=== PATIENT | female | born 1990 | race Caucasian/White ===

== ENCOUNTER 2017-01-14 09:39 | Outpatient (CLI) | payer MEDICAID ==
[2017-01-14 10:16] LABS: APPEARANCE,URINE SLIGHTLY-CLOUDY; BILIRUBIN,URINE NEGATIVE (NEGATIVE); GLUCOSE, URINE NEGATIVE (NEGATIVE); KETONES,URINE TRACE mg/dL (NEGATIVE); LEUKOCYTE ESTERASE,URINE NEGATIVE (NEGATIVE); NITRITE,URINE NEGATIVE (NEGATIVE); PROTEIN,URINE NEGATIVE (NEGATIVE); URINE SPECIFIC GRAVITY 1.009; UROBILINOGEN,URINE NEGATIVE mg/dL (<2.0)
[2017-01-14 10:23] LABS: AMNISURE (ROM) NEGATIVE (NEGATIVE)
[2017-01-14 10:31] LABS: URINE BARBITURATES SCREEN NEGATIVE; URINE METHADONE SCREEN NEGATIVE; URINE OPIATES LOW NEGATIVE; URINE PHENCYCLIDINE SCREEN NEGATIVE
--- NOTE | 2017-01-14 10:55 | Non Stress Test Report ---
Non Stress Test Datetime Report Generated by CPN: 01/14/2017 10:55 INDICATION Indication for Study: Ordered by Provider Indication for Study (NST) Other: Labor Check MONITORING Monitor Explained: Monitor Explained; Test Explained; Patient Verbalized Understanding Time on Monitor: 01/14/2017 10:01 Time off Monitor: 01/14/2017 10:39 NST Duration: 38 NST INTERVENTIONS NST Interventions: PO Hydration; Reposition Patient Physician Notified NST: Dr. Neilsen BABY A: [id number] BABY A Movement : Present Contraction Frequency : irregular FHR Baseline : 135 Accelerations : 15X15 Decelerations : None Variability : Moderate 6-25bpm NST Review: Meets Criteria for Reactive NST NST Review and Verified By : Chelsey Hill RN NST Results: Reactive NST REPORT Report Trigger: Send Report
== END 2017-01-14 11:06 | disposition home or self-care (01) ==
LOC: LC 09:39
PROVIDERS: ATTEND Specialist
DX: Z34.83 Encounter for supervision of other normal pregnancy, third trimester (principal); Z3A.40 40 weeks gestation of pregnancy
CPT/HCPCS: 59025; 80307; 81005; 84112

== ENCOUNTER 2017-01-16 06:21 | Inpatient (IN) | payer MEDICAID ==
[2017-01-16] MEDS ORDERED: OXYTOCIN/NORMAL SALINE 1,000 ML IV PRN ×2 (06:37→13:07)
[2017-01-16] MEDS ORDERED: RINGERS SOLUTION,LACTATED 1,000 ML IV PRN (06:37)
[2017-01-16] MEDS ORDERED: RINGERS SOLUTION,LACTATED 300 ML IV ONE (06:37)
[2017-01-16] MEDS ORDERED: OXYTOCIN/NORMAL SALINE 20 UNIT/1,000 ML RTUINJ ONE (07:28)
[2017-01-16 07:35] LABS: ABSOLUTE BASOPHILS # (AUTO) 0.1 10^3/uL (0.0-0.2); ABSOLUTE EOSINOPHILS # (AUTO) 0.3 10^3/uL (0.0-0.6); ABSOLUTE LYMPHOCYTES (AUTO) 1.8 10^3/uL (0.5-4.7); ABSOLUTE MONOCYTES (AUTO) 0.7 10^3/uL (0.1-1.4); ABSOLUTE NEUT (AUTO) 4.3 10^3/uL (1.7-8.2); BASOPHILS % (AUTO) 0.8 % (0-2); HEMATOCRIT 33.7 % (36.0-47.0); HEMOGLOBIN 11.6 g/dL (12.0-15.5); HGB HCT DIFFERENCE 1.1; LYMPHOCYTES % (AUTO) 25.1 % (13-45); MEAN CORPUSCULAR HEMOGLOBIN 28.9 pg (27.0-33.4); MEAN CORPUSCULAR HGB CONC 34.3 g/dL (32.0-36.0); MEAN CORPUSCULAR VOLUME 84 fl (80-97); MONOCYTES % (AUTO) 9.3 % (3-13); RED CELL DISTRIBUTION WIDTH 14.3 % (11.5-14.0); SEGMENTED NEUTROPHILS % (AUTO) 60.8 % (42-78); WHITE BLOOD COUNT 7.1 10^3/uL (4.0-10.5)
[2017-01-16] MEDS ORDERED: MAG HYDROX/AL HYDROX/SIMETH SUSP 30 ML UDCUP ONE (08:02)
[2017-01-16 09:31] LABS: URINE BARBITURATES SCREEN NEGATIVE; URINE METHADONE SCREEN NEGATIVE; URINE OPIATES LOW NEGATIVE; URINE PHENCYCLIDINE SCREEN NEGATIVE
--- NOTE | 2017-01-16 09:49 | L&D Progress Notes ---
PROGRESS NOTES Datetime Report Generated by CPN: 01/16/2017 09:49 PROGRESS NOTE Impression: Normal Progression of Labor Procedures: Sterile Vag Exam Plan: Continue Present Management; Induction Plan Other: pt may have epidural Informed Consent Obtained: Vaginal Delivery Vital Signs : Reviewed Comment: pt may have epidural plan for arom when comfortable. anticipate VAGINAL EXAM Dilatation: 4 Dilatation: 3 Effacement: 70 Effacement: 50 Station: -1 Station: -1 Contractions: every 2-4 Contractions: irregular MEMBRANES Membranes: Intact Membranes: Intact FETUS A FHR - Baseline: 135 Monitoring: External US Variability: Moderate 6-25bpm Accelerations: 15X15 Decelerations: None FHR Category: Category I Estimated Weight (gm): 4000 Presentation: Vertex SIGNATURE SIGNATURE: [id number] SIGNATURE: [id number] Assignment: Melissa Strong MD Signature: with User ID: [email or web address] : with User ID: [email or web address]
[2017-01-16] MEDS ORDERED: EPHEDRINE SULFATE INJ 50 MG/1 ML AMPULE ONE (10:26)
[2017-01-16] MEDS ORDERED: FENTANYL/BUPIVACAINE/NS/PF 200 MCG/100 ML RTUINJ EPI ONE (10:27)
[2017-01-16] MEDS ORDERED: BUPIVACAINE HCL 0.25 % INJ/PF (2.5 MG/1 ML) 30 ML VIAL ONE (10:27)
[2017-01-16] MEDS ORDERED: METHYLERGONOVINE MALEATE INJ/PF 0.2 MG/1 ML AMPULE ONE (12:46)
[2017-01-16] MEDS ORDERED: OXYTOCIN 10 UNIT/ML VIAL ONE (12:46)
[2017-01-16] MEDS ORDERED: LIDOCAINE 1% INJ-PF (10 MG/ML) 30 ML SDV ONE (12:46)
[2017-01-16] MEDS ORDERED: MISOPROSTOL 0.2 MG TABLET ONE (12:46)
[2017-01-16] MEDS ORDERED: ACETAMINOPHEN WITH CODEINE #3 TABLET PO PRN ×2 (13:07)
[2017-01-16] MEDS ORDERED: ZOLPIDEM TARTRATE 5 MG TABLET PO PRN (13:07)
[2017-01-16] MEDS ORDERED: BENZOCAINE/MENTHOL AEROSOL SPRAY 56 ML TOP PRN (13:07)
[2017-01-16] MEDS ORDERED: DIBUCAINE 1% OINTMENT 28 GM TP PRN (13:07)
[2017-01-16] MEDS ORDERED: DIPH/PERTUSS(ACELL)/TETANUS VAC/PF 0.5 ML SYR (>=10YO) IM PRN (13:07)
[2017-01-16] MEDS ORDERED: MEASLES,MUMPS&RUBELLA VACC/PF 0.5 ML VIAL SUBCUT PRN (13:07)
--- NOTE | 2017-01-16 15:22 | Admission Physical ---
Datetime Report Generated by CPN: 01/16/2017 15:22 CURRENT ADMISSION Hx Assessment: The History has been Reviewed and is Current Chief Complaint: Scheduled Induction of Labor Indication for Induction: Post Dates Admit Plan: Admit to Unit ALLERGIES Medication Allergies: No Medication Allergies: No Known Allergies (01/16/2017) Medication Allergies: No Known Allergies (08/05/2016) Latex: No Latex Allergies Food Allergies: none Environmental Allergies: none OBSTETRICAL HISTORY EDC: 01/10/2017 00:00 : 4 Para: 2 Term: 2 : 0 SAB: 1 Ectopic: 0 Livin Cesareans: 0 VBACs: 0 Multiple Births: 0 Gestational Diabetes: No Rh Sensitization: No Incompetent Cervix: No CLINTON: No Infertility: No ART Treatment: No Uterine Anomaly: No IUGR: No Hx Previous C/S: No Macrosomia: No Hx Loss/Stillborn: No PIH: No Hx : No Placenta Previa/Abruption: No Depression/PP Depression: No PTL/PROM: No Post Hemorrhage: Yes Current Procedures: Ultrasound; NST Obstetrical History Comments: G1: 2010 G2: 2011 D/C-partial molar G3: 2014 pp hemorrhage SEE RECORDS Alcohol: No Marijuana : No Cocaine: No Other Illicit Drugs: No Cigarettes: Never Smoker. [id number] MEDICAL HISTORY Diabetes: No Blood Transfusion: No Pulmonary Disease (Asthma, TB): No Breast Disease: No Hypertension: No [place] Surgery: No Heart Disease: No Hosp/Surgery: No Autoimmune Disorder: No Anesthetic Complications: No Kidney Disease: No Abnormal Pap Smear: No Neuro/Epilepsy: No Psychiatric Disorders: No Other Medical Diseases: No Hepatitis/Liver Disease: No Significant Family History: No Varicosities/Phlebitis: No Trauma/Violence : No Thyroid Dysfunction: No INFECTIOUS HISTORY Gonorrhea: No Genital Herpes: No Chlamydia: No Tuberculosis: No Syphilis: No Hepatitis: No HIV/AIDS Exposure: No Rash or Viral Illness: No HPV: No PHYSICAL EXAM General: Normal HEENT: Normal Neurologic: Normal Thyroid: Normal Heart: Normal Lungs: Normal Breast: Normal Back: Normal Abdomen: Normal Genitourinary Exam: Normal Extremities: Normal DTRs: Normal Pelvic Type: Adequate Physical Exam Comments: Pelvis proven 9lbs 9oz Vital Signs: Reviewed VAGINAL EXAM Dilatation: 4 Dilatation: 3 Effacement: 70 Effacement: 50 Station: -1 Station: -1 Contraction Comments: every 2-4 Contraction Comments: irregular MEMBRANES Membranes: Intact Membranes: Intact FETUS A EGA: 40.6 Monitoring: External US FHR- Baseline: 135 Variability: Moderate 6-25bpm Accelerations: 15X15 Decelerations: None Estimated Weight (gm): 4000 Presentation: Vertex Admit Comment: Induction of labor Hx: obesity, pph, molar SVE as above GBS negative Pitocin per protocol May have epidural Anticipate PLANS FOR LABOR AND DELIVERY Labor and Delivery: None Pain Management: Epidural Feeding Preference: Breast Benefit of Breast Feed Discussed: Yes Circumcision: N/A INFORMED CONSENT Informed Consent Obtained: Vaginal Delivery Assignment: Melissa Strong MD Signature: with User ID: [email or web address] : with User ID: [email or web address]
[2017-01-16] MEDS: FERROUS SULFATE 325 MG TABLET PO SCH (17:56)
[2017-01-16] MEDS: DOCUSATE SODIUM 100 MG CAPSULE PO SCH (17:56)
[2017-01-16] MEDS: IBUPROFEN 800 MG TABLET PO SCH ×2 (17:58→22:08)
--- NOTE | 2017-01-16 20:01 | Delivery Summary ---
Del Sum A-C Datetime Report Generated by CPN: 01/16/2017 20:01 DELIVERY PERSONNEL DELIVERY PERSONNEL: [id number];[id number] Delivery Doctor:: Beverly Elizalde CNM Nurse [employer] Gat[employer]r Certified:: Beverly Elizalde CNM Labor and Delivery Nurse:: Laila Goodrich RNrn imcu Nurse:: Tete Hill RN Air Technician/NUT PROCESS HELPER: Rob Carrillo, ST MATERNAL INFORMATION Delivery Anesthesia: Epidural Medications After Delivery: Pitocin Drip 20 Units/1000ml NSS Meds After Delivery Comment: 1000mcg cytotec MD Estimated Blood Loss (ml): 250 Maternal Complications: None Provider Comments: of viable female over intact perieneum, head delivered without difficulty, nuchal X1 noted, delivered through, shoulders and body delivered with gentle traction and sobeida maneuver, infant with spontaneous cry and respirations, to maternal abdomen, cord clamped X2, cut free by pts after 2 min delay, spontaneous delivery of placenta via lynn mechanism, appears intact, 3 VC. Hemostasis ahceived with external fundal massage and IV pitocin, 1000 mcg rectal cytotec given prophylactically. Vagina and perineum inspected, no lacerations noted. Mother and infant in stable condition LABOR SUMMARY EDC: 01/10/2017 00:00 No. Babies in Womb: 1 Attempted: No Labor Anesthesia: Epidural LABOR INFORMATION Reason for Induction: Post Dates Onset of Labor: 01/16/2017 10:40 Complete Dilatation: 01/16/2017 12:43 Oxytocin: Induction Group B Beta Strep: Negative Antibiotics # of Doses: 0 Steroids Given: None Reason Steroids Not Administered: Not Applicable MEMBRANES Membranes Rupture Method: Artificial Rupture of Membranes: 01/16/2017 11:34 Length of Rupture (hr): 1.33 Amniotic Fluid Color: Light Meconium Amniotic Fluid Amount: Moderate STAGES OF LABOR Stage 1 hr: 2 Stage 1 min: 3 Stage 2 hr: 0 Stage 2 min: 11 Stage 3 hr: 0 Stage 3 min: 5 Total Time in Labor hr: 2 Total Time in Labor min: 19 VAGINAL DELIVERY Episiotomy: None Laceration Extension: N/A Laceration Type: None Laceration Repair: Not Applicable Sponge Count Correct: N/A Sharps Count Correct: N/A BABY A INFORMATION Infant Delivery Date/Time: 01/16/2017 12:54 Method of Delivery: Vaginal Born in Route : No : N/A Forceps: N/A Vacuum Extraction: N/A Shoulder Dystocia : No PRESENTATION/POSITION BABY A Presentation: Cephalic Cephalic Presentation: Vertex Vertex Position: Left Occipital Anterior Breech Presentation: N/A PLACENTA INFORMATION BABY A Placenta Delivery Time : 01/16/2017 12:59 Placenta Method of Delivery: Spontaneous Placenta Status: Delivered SCORES BABY A Heart Rate 1 min: >100 bpm Resp Effort 1 min: Good Cry Reflex Irritability 1 min: Cough or Sneeze or Pulls Away Muscle Tone 1 min: Active Motion Color 1 min: Blue/Pale Resuscitation Effort 1 min: Tactile Stimulation SCORE 1 MIN: 8 Heart Rate 5 min: >100 bpm Resp Effort 5 min: Good Cry Reflex Irritability 5 min: Cough or Sneeze or Pulls Away Muscle Tone 5 min: Active Motion Color 5 min: Body [place], Extremities Blue Resuscitation Effort 5 min: Tactile Stimulation SCORE 5 MIN: 9 INFANT INFORMATION BABY A Gestational Age at Delivery: 40.6 Gestational Status: Full Term- 39- 40.6 Weeks Infant Outcome : Liveborn Infant Condition : Stable Infant Sex: Female IDENTIFICATION BABY A Verification Date/Time: 01/16/2017 14:06 ID Band Number: [id number] Mother's Name Verified: Yes RN Verifying Infant: a spencer, rn Additional Verifying Personnel: rene martinezsaint paul, rn WEIGHT/LENGTH BABY A Infant Birthweight (gm): 4550 Infant Weight (lb): 10 Infant Weight (oz): 0 Length (in): 20.50 Infant Length (cm): 52.07 CORD INFORMATION BABY A No. Cord Vessels: 3 Nuchal Cord : Around Neck x1, Tight Cord Blood Taken: Yes-For Storage (Mom's Blood type +) Infant Suction: None ASSESSMENT BABY A Complications: Other Complications- Other: terminal mec Physical Findings at Delivery: Within Normal Limits Respirations: Appears Normal Skin to Skin: Yes Skin to Skin Time (min): 80 [employer] Press Operator/ALS Called : No Care By: Chelsey Hill RN Transferred To: Nursery BABY B INFORMATION : N/A SIGNATURES Assignment: Melissa Strong MD Signature: with User ID: [email or web address] : with User ID: [email or web address]
[2017-01-17] MEDS: IBUPROFEN 800 MG TABLET PO SCH ×3 (05:06→21:50)
[2017-01-17 06:55] LABS: HEMATOCRIT 34.1 % (36.0-47.0); HEMOGLOBIN 11.7 g/dL (12.0-15.5); MEAN CORPUSCULAR HEMOGLOBIN 28.5 pg (27.0-33.4); MEAN CORPUSCULAR HGB CONC 34.3 g/dL (32.0-36.0); MEAN CORPUSCULAR VOLUME 83 fl (80-97); RED CELL DISTRIBUTION WIDTH 14.4 % (11.5-14.0); WHITE BLOOD COUNT 10.2 10^3/uL (4.0-10.5)
[2017-01-17] MEDS: FERROUS SULFATE 325 MG TABLET PO SCH ×2 (09:50→17:22)
[2017-01-17] MEDS: SENNOSIDES/DOCUSATE 8.6-50 MG 1 EACH TABLET PO SCH (09:51)
[2017-01-17] MEDS: DOCUSATE SODIUM 100 MG CAPSULE PO SCH ×2 (09:51→17:22)
[2017-01-17] MEDS: PRENATAL VITAMIN W-O CA NO5/FE FUMARATE/FA CAPSULE PO SCH (09:51)
--- NOTE | 2017-01-17 15:17 | PDOC PROGRESS REPORT ---
Subjective-OB Subjective: Post Delivery Day:1 26 year old s/p ppd1. Ambulating, voiding and without difficulty. Denies any needs at this time Physical Exam (OB) Vital Signs: Temp Pulse Resp BP Pulse Ox 97.9 F 74 18 132/74 H 99 01/17/17 07:53 01/17/17 07:53 01/17/17 07:53 01/17/17 07:53 01/17/17 07:53 Intake & Output 01/16/17 01/17/17 01/18/17 06:59 06:59 06:59 Weight 101.15 kg - General General Appearance: Appears well In distress: None - Episiotomy/Laceration Site Condition: N/A - Lochia Lochia Amount: Small 10-25 ml Lochia Color: Rubra/Red - Abdomen Description: Soft, Flat Hernia Present: No Fundal Description: Firm, Midline Fundal Height: u/u - u/2 - Respiratory Respiratory Status: No respiratory distress - Extremities Upper extremity: Normal inspection Lower extremities: Normal inspection - Psychological Associated symptoms: Normal affect, Normal mood - bonding well with baby and attempting for the first time and happy with how it's going Objective-Diagnostic Laboratory: 01/17/17 06:48 01/17/17 06:48 WBC 10.2 RBC 4.10 Hgb 11.7 L Hct 34.1 L MCV 83 MCH 28.5 MCHC 34.3 RDW 14.4 H Plt Count 147 L Assessment and Plan(PN) - Assessment and Plan (1) Vaginal delivery Is this a current diagnosis for this admission?: YesPlan: continue stay - Time Spent with Patient Time with patient: Less than 15 minutes Medications reviewed and adjusted accordingly: Yes - Disposition Anticipated Discharge: Home Within: within 24 hours
[2017-01-18] MEDS: IBUPROFEN 800 MG TABLET PO SCH ×2 (05:41→13:20)
[2017-01-18] MEDS: DOCUSATE SODIUM 100 MG CAPSULE PO SCH (09:30)
[2017-01-18] MEDS: PRENATAL VITAMIN W-O CA NO5/FE FUMARATE/FA CAPSULE PO SCH (09:30)
[2017-01-18] MEDS: SENNOSIDES/DOCUSATE 8.6-50 MG 1 EACH TABLET PO SCH (09:31)
[2017-01-18] MEDS: FERROUS SULFATE 325 MG TABLET PO SCH (09:31)
--- NOTE | 2017-01-18 11:15 | PDOC DISCHARGE SUMMARY ---
Final Diagnosis Discharge Date: 01/18/17 Discharge Data - Discharge Medication Home Medications: Vit#96/Ferrous Fum/FA [ Tablet] 1 each PO DAILY 04/14/14 Ranitidine HCl [Zantac 150 mg Tablet] 150 mg PO DAILY 01/14/17 Reason(s) for Admission: Induction of Labor Procedures: None Intrapartum Procedure(s): Spontaneous Vaginal Delivery - Diagnosis Test Laboratory: Temp Pulse Resp BP Pulse Ox 97.4 F 62 18 129/77 H 99 01/18/17 07:42 01/18/17 07:42 01/18/17 07:42 01/18/17 07:42 01/18/17 07:42 01/16/17 01/16/17 01/17/17 06:33 07:03 06:48 RBC 4.00 4.10 Hgb 11.6 L 11.7 L Hct 33.7 L 34.1 L Urine Opiates Screen NEGATIVE - Discharge information/Instructions Discharge Activity: Activity As Tolerated Discharge Diet: Regular Disposition: HOME, SELF-CARE Follow up with: [facility] in: 4
[2017-01-18 12:43] VITALS: BP 139/72
== END 2017-01-18 14:04 | disposition home or self-care (01) | DRG 775 ==
LOC: LR 06:21 → 2S 15:19
PROVIDERS: ADMIT Student in an Organized Health Care Education/Training Program; ATTEND Student in an Organized Health Care Education/Training Program
PROC: 10E0XZZ Delivery of Products of Conception, External Approach (ICD-10-PCS; principal; 2017-01-16)
PROC: 4A1HXCZ Monitoring of Products of Conception, Cardiac Rate, External Approach (ICD-10-PCS; 2017-01-16)
DX: O69.1XX0 Labor and delivery complicated by cord around neck, with compression, not applicable or unspecified (principal); O48.0 Post-term pregnancy; O99.214 Obesity complicating childbirth; O77.0 Labor and delivery complicated by meconium in amniotic fluid; Z37.0 Single live birth
CPT/HCPCS: 36415; 80307; 85025; 85027; 86592; 86850; 86900; 86901; 94760; J2210; J2590; J3490

== ENCOUNTER 2017-04-05 06:02 | Day surgery (SDC) | payer MEDICAID ==
[2017-04-02 10:14] LABS: HEMATOCRIT 39.8 % (36.0-47.0); HEMOGLOBIN 13.7 g/dL (12.0-15.5); HGB HCT DIFFERENCE 1.3; MEAN CORPUSCULAR HGB CONC 34.3 g/dL (32.0-36.0); MEAN CORPUSCULAR VOLUME 85 fl (80-97); RED BLOOD COUNT 4.71 10^6/uL (3.72-5.28); RED CELL DISTRIBUTION WIDTH 13.9 % (11.5-14.0); WHITE BLOOD COUNT 6.9 10^3/uL (4.0-10.5)
[2017-04-02 10:15] LABS: APPEARANCE,URINE CLEAR; BILIRUBIN,URINE NEGATIVE (NEGATIVE); GLUCOSE, URINE NEGATIVE (NEGATIVE); KETONES,URINE NEGATIVE (NEGATIVE); LEUKOCYTE ESTERASE,URINE NEGATIVE (NEGATIVE); NITRITE,URINE NEGATIVE (NEGATIVE); PROTEIN,URINE NEGATIVE (NEGATIVE); URINE SPECIFIC GRAVITY 1.003; UROBILINOGEN,URINE NEGATIVE mg/dL (<2.0)
[~2017-04-05 06:02] MED LIST: LACTATED RINGERS 1000 ML IV PRN; LIDOCAINE 0.5% INJ-PF (5 MG/ML) 50 ML SDV SUBCUT PRN
[2017-04-05] MEDS ORDERED: FENTANYL CITRATE INJ/PF 250 MCG/5 ML AMPULE ONE (08:15)
[2017-04-05] MEDS ORDERED: MIDAZOLAM 2 MG/2 ML INJ ONE (08:15)
[2017-04-05] MEDS ORDERED: PROPOFOL INJ 200 MG/20 ML VIAL IV ONE (08:16)
[2017-04-05] MEDS ORDERED: ACETAMINOPHEN 100 ML IV ONE (08:48)
[2017-04-05] MEDS ORDERED: RINGERS SOLUTION,LACTATED 1,000 ML IV PRN (09:26)
[2017-04-05] MEDS ORDERED: MORPHINE SULFATE 10 MG/ML INJ IM PRN (09:26)
[2017-04-05] MEDS ORDERED: IBUPROFEN 800 MG TABLET PO PRN (09:27)
[2017-04-05] MEDS ORDERED: OXYCODONE-ACETAMINOPHEN 5-325 MG TABLET PO PRN ×2 (09:27)
[2017-04-05] MEDS ORDERED: FENTANYL CITRATE INJ/PF 100 MCG/2 ML AMPUL IV PRN ×3 (09:53)
[2017-04-05] MEDS ORDERED: MEPERIDINE HCL/PF INJ 25 MG/1 ML DISP.SYRIN IV PRN (09:53)
[2017-04-05] MEDS ORDERED: ONDANSETRON HCL INJ/PF 4 MG/2 ML SDV IV PRN (09:53)
[2017-04-05] MEDS ORDERED: DIPHENHYDRAMINE HCL 50 MG/ML VIAL IV PRN (09:53)
[2017-04-05 11:37] VITALS: BP 104/62
[2017-04-05] MEDS ORDERED: LIDOCAINE 2% INJ-PF (20 MG/ML) 10 ML AMPUL ONE (12:08)
[2017-04-05] MEDS ORDERED: KETOROLAC TROMETHAMINE 60 MG/2 ML SDV ONE (12:08)
[2017-04-05] MEDS ORDERED: DEXAMETHASONE SOD PHOSPHATE INJ 4 MG/1 ML VIAL ONE (12:08)
[2017-04-05] MEDS ORDERED: GLYCOPYRROLATE INJ 0.4 MG/2 ML VIAL ONE (12:08)
[2017-04-05] MEDS ORDERED: ONDANSETRON HCL INJ/PF 4 MG/2 ML SDV ONE (12:08)
--- NOTE | 2017-05-15 19:33 | OPERATIVE REPORT E ---
Operative Report NAME: DEANNA TRAORE : 1990 AGE: 27Y DATE OF SURGERY: 04/05/2017 ROOM: PREOPERATIVE DIAGNOSIS: Patient desiring permanent sterilization. POSTOPERATIVE DIAGNOSIS: Patient desiring permanent sterilization. OPERATION: Essure tubal placement. SURGEON: Prince Nicholson D.O. CLEARING INSPECTOR: None. ANESTHESIA: General endotracheal COMPLICATIONS: None. PATHOLOGY: None. FINDINGS: 1. Uterine sound to 8 cm. 2. One coil visible in right tubal ostia and 4 coils visible in left tubal ostia. PROCEDURE: The patient was taken to the operating room where she was placed in the dorsal supine position upon the operating table. She was then administered her general endotracheal anesthesia. Once this was found to be adequate, she was placed in the dorsal lithotomy position with Marty stirrups. She was then prepped and draped in the normal sterile fashion. An open-sided speculum was then placed inside the patient's vagina. The cervix was easily visualized and grasped on the anterior lip with a single-tooth tenaculum. The uterus was then sounded to 8 cm, the cervix was then dilated to 24-Citizen Of [place] using the Hegar dilators. A 30-degree hysteroscope was passed through the cervix into the uterine cavity where a diagnostic hysteroscopic examination was performed which revealed no abnormalities. Both tubal ostia were easily visualized. An Essure coil was placed in each tubal ostia without difficulty and atraumatically. Following placement of the coils, there was one coil visible in the right tubal ostia and 4 coils visible in the left tubal ostia. Following this, there was excellent hemostasis noted and all instruments were then removed from the patient's vagina. At this point in time the procedure was terminated. All sponge, lap, and needle counts were correct x2. The patient tolerated the procedure well. The patient was taken to the recovery room in stable condition. DICTATING PHYSICIAN: Prince Nicholson DO [id number] PHY#: [id number] ID: [id number] JOB#: [id number] ACCT: [id number] cc:Prince Nicholson D.O. >
== END 2017-04-05 10:45 | disposition home or self-care (01) ==
LOC: OROUT 06:02
PROVIDERS: ATTEND Obstetrics & Gynecology
PROC: 0UL74DZ Occlusion of Bilateral Fallopian Tubes with Intraluminal Device, Percutaneous Endoscopic Approach (ICD-10-PCS; principal; 2017-04-05 08:00)
DX: Z30.2 Encounter for sterilization (principal)
CPT/HCPCS: 36415; 85027; 81025; 81001; 58565; J2250; J1100; J1885; J3010; J3490 ×2; J2405; J2704; J0131; 952